=== PATIENT | male | born 1950 | race Caucasian/White ===

== ENCOUNTER 2016-09-15 17:21 | Inpatient (IN) | payer MEDICARE, BC ==
[2016-09-15] MEDS ORDERED: METOPROLOL PO (17:36)
[2016-09-15] MEDS ORDERED: PRAVASTATIN SOD40 M1 PO (17:37)
[2016-09-15 17:56] LABS: BASO % 0.2 % (0-2); EOS % 0.1 % (0-7); HCT-HEMATOCRIT 49.4 % (36.0-53.5); HGB-HEMOGLOBIN 17.4 gm/dl (13.5-17.0); IMMATURE GRANULOCYTES ABSOLUTE 0.04 tho/cmm (0-0.03); IMMATURE GRANULOCYTES PERCENT 0.3 % (0-0.3); LYMPH % 7.9 % (20-45); MCH (MEAN CORPUSCULAR HGB) 31.8 pg (28.0-32.0); MCHC MEAN CORPUSCULAR HGB CONC 35.2 % (32.0-36.0); MCV (MEAN CELL VOLUME) 90.1 fl (82.0-96.0); MEAN PLATELET VOLUME 12.7 cmc (9.4-12.4); MONOCYTE ABSOLUTE COUNT 0.8 tho/cmm (0.0-1.2); NEUTROPHIL ABSOLUTE COUNT 11.1 tho/cmm (1.6-8.0); NEUTROPHIL-AUTOMATED 11.1 tho/cmm (1.6-8.0); NEUTROPHILS % 85.5 % (40-80); PLATELET COUNT 164 tho/cmm (150-450); RED BLOOD COUNT 5.48 mil/cmm (4.40-5.70); RED CELL DISTRIBUTION WIDTH 13.3 % (12.4-16.4); WHITE BLOOD COUNT 12.9 tho/cmm (4.0-10.0)
[2016-09-15] MEDS ORDERED: METOPROLOL TART25 M1 PO ×4 (18:00→21:02)
[2016-09-15 18:10] LABS: ANION GAP 21 mmol/L (0-20); BLOOD UREA NITROGEN 18 mg/dl (6-24); CARBON DIOXIDE-VENOUS 19 mmol/L (22-32); CHLORIDE 104 mmol/l (96-110); CREATININE 1.71 mg/dl (0.60-1.30); GLUCOSE 166 mg/dL (70-110); POTASSIUM 3.5 mmol/L (3.7-5.1); SODIUM 140 mmol/L (135-145); eGFR VALUE FOR BLACK 47 mL/Min
[2016-09-15] MEDS ORDERED: ASPIRIN325 M3 PO (20:56)
[2016-09-15 22:24] LABS: MAGNESIUM 2.2 mg/dl (1.3-2.6)
[2016-09-15 22:26] LABS: POTASSIUM 4.5 mmol/L (3.7-5.1)
[2016-09-16 01:27] LABS: HCT-HEMATOCRIT 41.2 % (36.0-53.5); PLATELET COUNT 134 tho/cmm (150-450)
[2016-09-16 05:51] LABS: HCT-HEMATOCRIT 40.4 % (36.0-53.5); PLATELET COUNT 127 tho/cmm (150-450)
[2016-09-16 06:09] LABS: ANION GAP 11 mmol/L (0-20); BLOOD UREA NITROGEN 18 mg/dl (6-24); CALCIUM 8.6 mg/dl (8.5-10.5); CARBON DIOXIDE-VENOUS 26 mmol/L (22-32); CHLORIDE 106 mmol/l (96-110); CHOLESTEROL 161 mg/dl (120-200); GLUCOSE 103 mg/dL (70-110); HDL CHOLESTEROL 66 mg/dl (40-60); LDL CHOLESTEROL 83 mg/dl (0-99); MAGNESIUM 2.4 mg/dl (1.3-2.6); SODIUM 139 mmol/L (135-145); TRIGLYCERIDES 62 mg/dl (<149); VLDL 12 mg/dl (0-30); eGFR VALUE FOR BLACK 81 mL/Min
[2016-09-17 05:30] LABS: PLATELET COUNT 124 tho/cmm (150-450)
[2016-09-17] MEDS ORDERED: BRILINTA90 M1 PO (10:06)
[2016-09-17] MEDS ORDERED: NITROGLYCERIN0.4 M2 SL (10:07)
[2016-09-17] MEDS ORDERED: PRAVACHOL40 M1 PO (10:08)
[2016-09-17] MEDS ORDERED: ASPIRIN81 M1 PO (10:09)
[2016-09-17] MEDS ORDERED: LISINOPRIL2.5 M1 PO (10:38)
== END 2016-09-17 13:07 | DRG 247 ==
LOC: EDMED 17:21 → EMR2 18:05 → CCU 19:27
PROVIDERS: Emergency Medicine; ADMIT Internal Medicine Interventional Cardiology
PROC: 0CC Mouth and Throat, Extirpation (ICD-10-PCS; principal; 2016-09-15)
PROC: 027034Z Dilation of Coronary Artery, One Artery with Drug-eluting Intraluminal Device, Percutaneous Approach (ICD-10-PCS; 2016-09-15)
PROC: 4A023N8 Measurement of Cardiac Sampling and Pressure, Bilateral, Percutaneous Approach (ICD-10-PCS; 2016-09-15)
DX: I21.3 ST elevation (STEMI) myocardial infarction of unspecified site (principal); I10 Essential (primary) hypertension; E78.5 Hyperlipidemia, unspecified; I25.10 Atherosclerotic heart disease of native coronary artery without angina pectoris
CPT/HCPCS: C1757; C1769; C1876; C1887; C1894; C9113; J0282; J1265; J1327; J1644; J2060; J2250; J3010; J3480; Q9967